=== PATIENT | male | born 1990 | race Caucasian/White ===

== ENCOUNTER 2020-06-14 19:34 | Emergency (ER) | payer MEDICAID ==
[~2020-06-14] VITALS: Ht 162.6 cm; Wt 53.5 kg
[2020-06-14 21:03] LABS: BASOPHILS % (AUTO) 0.4 % (0-1); EOSINOPHILS # (AUTO) 0.1 X10'3 (0-0.9); EOSINOPHILS % (AUTO) 0.8 % (0-6); HEMATOCRIT 44.3 % (42.0-52.0); LYMPHOCYTES # (AUTO) 2.1 X10'3 (1.1-4.8); LYMPHOCYTES % (AUTO) 17.1 % (21-51); MEAN CORPUSCULAR HEMOGLOBIN 30.9 PG (27.0-31.0); MEAN CORPUSCULAR HGB CONC 33.9 g/dL (33.0-36.5); MEAN CORPUSCULAR VOLUME 91.3 FL (78-98); MONOCYTES # (AUTO) 0.8 X10'3 (0-0.9); MONOCYTES % (AUTO) 6.5 % (2-12); NEUTROPHILS # (AUTO) 9.2 X10'3 (1.8-7.7); NEUTROPHILS % (AUTO) 75.2 % (42-75); PLATELET COUNT 252 X10'3 (140-440); RED BLOOD COUNT 4.85 X10'6 (4.70-6.10); RED CELL DISTRIBUTION WIDTH 12.7 % (11.5-14.5); WHITE BLOOD COUNT 12.2 X10'3 (4.5-11.0)
[2020-06-14 21:17] LABS: ALANINE AMINOTRANSFERASE 25 U/L (12-78); ALBUMIN/GLOBULIN RATIO 1.6 (1.1-1.5); ALKALINE PHOSPHATASE 62 IU/L (46-116); ANION GAP 13 (8-16); ASPARTATE AMINO TRANSFERASE 9 U/L (10-37); BILIRUBIN,TOTAL 0.8 MG/DL (0.1-1.0); BLOOD UREA NITROGEN 8 MG/DL (7-18); CALCIUM 9.9 MG/DL (8.5-10.1); CHLORIDE 105 MMOL/L (99-107); CREATININE 0.73 MG/DL (0.60-1.10); GLUCOSE 102 MG/DL (70-104); POTASSIUM 3.3 MMOL/L (3.5-5.1); SODIUM 143 MMOL/L (135-145); TOTAL CARBON DIOXIDE 24.7 MMOL/L (24-32); TOTAL PROTEIN 8.2 G/DL (6.4-8.2); eGFR > 90 ML/MIN
[2020-06-14 21:24] LABS: ETHANOL < 0.010 GM/DL (0.0-0.010)
--- NOTE | 2020-06-14 21:40 | NUR ---
PT CHANGED INTO [facility]
[2020-06-14 21:46] LABS: URINE AMPHETAMINE SCREEN NEGATIVE (Neg); URINE BARBITUATE SCREEN NEGATIVE (Neg); URINE BENZODIAZEPINES SCREEN NEGATIVE (Neg); URINE CANNABINOID SCREEN POSITIVE (Neg); URINE COCAINE SCREEN NEGATIVE (Neg); URINE METHADONE SCREEN NEGATIVE (Neg); URINE OPIATE SCREEN NEGATIVE (Neg); URINE PHENCYCLIDINE SCREEN NEGATIVE (Neg)
[2020-06-14] MEDS ORDERED: OLANZapine 5mg rapidly disint. tablet PO PRN (21:50)
--- NOTE | 2020-06-14 21:56 | NUR ---
PT AMBULATED OVER TO OVER FLOW WITH GULSHAN WONG AND HIS MOTHER
--- NOTE | 2020-06-14 22:05 | NUR ---
Received pt to ER overflow, pt withdrawn and quiet. Pt offered and refused medication. Pt resting in bed sitting up with arms and legs crossed.
[2020-06-14] MEDS ORDERED: NO HOME MEDS (22:07)
--- NOTE | 2020-06-14 22:08 | NUR ---
Phone numbers Mom (Sanna) [phone] Sister (Brianna) [phone]
--- NOTE | 2020-06-14 22:08 | NUR ---
PT TRANSFERRED TO OVERFLOW, REPORT TO MARTA GAFFNEY, PT COOPERATIVE
--- NOTE | 2020-06-14 22:09 | NUR ---
Packet sent to [facility].
--- NOTE | 2020-06-14 22:32 | NUR ---
Pt presents to be paranoid, watchful, guarded and refused meds (Zyprexa) after offered again. Continue to monitor.
--- NOTE | 2020-06-14 23:19 | NUR ---
The patient is resting on his bed and his eyes are closed.
--- NOTE | 2020-06-14 23:50 | NUR ---
The patient was up to the nursing station and asking if he could leave and stated he did not feel safe. He was made aware of the 1798 hold and at this point he would have to wait for [facility] to come see him. He was encouraged to take prn zyprexa but at this point he is refusing stating, "I don't like pills" He was educated to the benefit of taking the medication but he has repeatedly refused
--- NOTE | 2020-06-15 01:01 | NUR ---
Pt appears to be sleeping, no s/s of distress.
--- NOTE | 2020-06-15 02:15 | NUR ---
pt sitting on chair near nurses station and was talking on the phone. GULSHAN Verde talking with Pt about the benefits of trying a dose of zyprexa, the med that was ordered for him by the MD. Pt not willing at this time to take the med
--- NOTE | 2020-06-15 04:37 | NUR ---
pt appears to be asleep, no distress noted, continue to monitor.
--- NOTE | 2020-06-15 05:54 | NUR ---
Pt appears to be sleeping, no s/s of distress.
[2020-06-15] MEDS ORDERED: OLANZapine 5mg rapidly disint. tablet PO ONE (06:05)
--- NOTE | 2020-06-15 06:54 | NUR ---
Patient awake and very paranoid and anxious. Patient just got off the phone with his mom. Continue to monitor.
[2020-06-15 07:18] VITALS: BP 123/78
--- NOTE | 2020-06-15 08:00 | NUR ---
Mother came to bedside. Patient awoke and spoke with mother for a few minutes then went back to sleep. Mother stayed at bedside. No distress observed. Continue to monitor.
--- NOTE | 2020-06-15 09:14 | NUR ---
Gab HOLDER, evaluating patient. Patient's mother at bedside. Continue to monitor.
--- NOTE | 2020-06-15 09:35 | NUR ---
[facility] and gave him resources. Patient is content with this decision. Continue to monitor.
== END 2020-06-15 10:02 | disposition home or self-care (01) ==
LOC: ER 19:35
DX: F29 Unspecified psychosis not due to a substance or known physiological condition (principal); F12.90 Cannabis use, unspecified, uncomplicated; Z72.89 Other problems related to lifestyle
CPT/HCPCS: 36415; 80053; 80305; 80320; 84443; 85025; 99284